=== PATIENT | female | born 1945 | race Caucasian/White ===

== ENCOUNTER → 2017-08-09 | Outpatient (CLI) | payer OTHER, MEDICARE | LOC: FIMAGING 10:56 | PROVIDERS: ATTEND Orthopaedic Surgery | DX: Z01.818 Encounter for other preprocedural examination (principal); M17.12 Unilateral primary osteoarthritis, left knee; M25.462 Effusion, left knee; M23.42 Loose body in knee, left knee ==

== ENCOUNTER 2017-08-25 06:54 | Inpatient (IN) | payer OTHER, MEDICARE ==
[~2017-08-25 06:54] MED LIST: ROPIVACAINE 0.2% 80 MG, EPINEPHrine 0.2 MG, KETOROLAC TROMETHAMINE 30 MG in BAG 0 ML IU ONE; TRANEXAMIC ACID 3,000 MG in NS 50 ML IRR ONE
--- NOTE | 2017-08-25 07:09 | PDHPUP ---
History & Physical Update H&P update statement: This history and physical update is based on an assessment of the patient which was completed after admission or registration (within 24 hours), but prior to the surgery/procedure. H&P update: H&P reviewed & patient examined, no change in patient's condition since H&P completed
[2017-08-25] MEDS ORDERED: DEXAMETHASONE 4 MG/ML VIAL IVP ONE (07:22)
[2017-08-25] MEDS ORDERED: ceFAZolin 2 GM/SWFI 2 GM/20 ML SYR IVP ONE (07:22)
[2017-08-25] MEDS ORDERED: ACETAMINOPHEN 325 MG TAB PO ONE (07:22)
[2017-08-25] MEDS ORDERED: FAMOTIDINE 20 MG TAB PO ONE (07:22)
[2017-08-25] MEDS ORDERED: LR 1,000 ML IV ONE (07:24)
[2017-08-25] MEDS ORDERED: LIDOCAINE 1% 2 ML INJ ID PRN (07:24)
[2017-08-25] MEDS ORDERED: DEXAMETHASONE 4 MG/ML VIAL ONE (07:26)
[2017-08-25] MEDS ORDERED: FAMOTIDINE 20 MG TAB ONE (07:27)
[2017-08-25] MEDS ORDERED: ceFAZolin 2 GM/SWFI 20 ML SYR IVP ONE (07:27)
[2017-08-25] MEDS ORDERED: ACETAMINOPHEN 325 MG TAB ONE (07:27)
[2017-08-25] MEDS ORDERED: TRANEXAMIC ACID 3,000 MG/50 ML BAG IRR ONE (07:28)
[2017-08-25] MEDS ORDERED: VANCOMYCIN 1 GM VIAL ONE (07:29)
[2017-08-25] MEDS ORDERED: MIDAZOLAM 2 MG/2 ML VIAL IVP ONE (08:04)
--- NOTE | 2017-08-25 08:07 | PDANEPAE ---
ANE History of Present Illness DJD L knee s/f for L TKA ANE Past Medical History - Cardiovascular History Hx Hypertension: Yes Hx Arrhythmias: No Hx Chest Pain: No Hx Coronary Artery / Peripheral Vascular Disease: No Hx CHF / Valvular Disease: No Hx Palpitations: No Cardiovascular History Comment: pcp monitors bp - Pulmonary History Hx COPD: No Hx Asthma/Reactive Airway Disease: No Hx Recent Upper Respiratory Infection: No Hx Oxygen in Use at Home: No Hx Sleep Apnea: No Sleep Apnea Screening Result - Last Documented: Negative - Neurologic History Hx Cerebrovascular Accident: Yes Hx Seizures: No Hx Dementia: No Neurologic History Comment: small TIA in 2000 or 2001- no residual - Endocrine History Hx Diabetes: No - Renal History Hx Renal Disorders: No - Liver History Hx Hepatic Disorders: No - Neurological & Psychiatric Hx Hx Neurological and Psychiatric Disorders: No - Cancer History Hx Cancer: No - Congenital Disorder History Hx Congenital Disorders: No - GI History Hx Gastrointestinal Disorders: No - Other Health History Other Health History: none - Chronic Pain History Chronic Pain: Yes (left knee pain) - Surgical History Prior Surgeries: Blephroplasty 08/2016. pylonidal cyst removal. hysterectomy 1978. right cataract ANE Review of Systems Review of Systems: - Exercise capacity METS (RN): 4 METS ANE Patient History - Allergies Allergies/Adverse Reactions: codeine Allergy (Mild, Verified 07/26/17 10:28) NAUSEA - Home Medications Home medications: home medication list seen and reviewed Home Medications: Acetaminophen [Tylenol 325mg (*)] 325 mg PO Q6 PRN 07/19/17 [Last Taken 08/23/17 ] Ibuprofen [Motrin (*)] 200 - 600 mg PO DAILY PRN 07/19/17 [Last Taken 08/16/17] Lisinopril [Zestril 10 mg (*)] 10 mg PO DAILY AT 6PM 07/19/17 [Last Taken 18:00] Pravastatin Sodium 20 mg PO DAILY AT 6PM 07/19/17 [Last Taken 08/24/17 18:00] - NPO status NPO Status: no food or drink >8 hours (except clears) NPO Since - Liquids (Date): 08/25/17 NPO Since - Liquids (Time): 03:00 NPO Since - Solids (Date): 08/24/17 NPO Since - Solids (Time): 17:00 - Anes Hx Anes Hx: no prior problems - Smoking Hx Smoking Status: Former smoker - Alcohol Use Alcohol Use: Rarely - Family Anes Hx Family Hx Anesthesia Complications: mother unable to tolerate well- always has n /v ANE Labs/Vital Signs - Labs - CBC WBC: reviewed - Vital Signs Blood Pressure: 155/88 Heart Rate: 59 Respiratory Rate: 20 O2 Sat (%): 96 Height: 156.21 cm Weight: 60.781 kg ANE Physical Exam - Airway Neck exam: FROM Mallampati Score: Class 1 Mouth exam: normal dental/mouth exam - Pulmonary Pulmonary: no respiratory distress - Cardiovascular Cardiovascular: regular rate and rhythym - ASA Status ASA Status: II ANE Anesthesia Plan Anesthesia Plan: general endotracheal anesthesia (R/B/A explained and patient agrees to proceed), spinal Regional Anesthesia: single shot NB (adductor canal block)
[2017-08-25] MEDS ORDERED: ONDANSETRON 4 MG/2 ML VIAL ONE (09:13)
[2017-08-25] MEDS ORDERED: fentaNYL 100 MCG/2 ML INJ ONE (09:13)
[2017-08-25] MEDS ORDERED: PROPOFOL/EMULSION 500 MG/50 ML BOTTLE IV ONE (09:13)
[2017-08-25] MEDS ORDERED: PHENYLEPHRINE HCL 100 MCG/ML SYR ONE (09:35)
[2017-08-25] MEDS ORDERED: ONDANSETRON DISINTEGRATING 4 MG TAB PO PRN (10:35)
[2017-08-25] MEDS ORDERED: POLYETHYLENE GLYCOL 3350 17 GM PKT PO PRN (10:35)
[2017-08-25] MEDS ORDERED: LACTULOSE 20 GM/30 ML UDCUP PO PRN (10:35)
[2017-08-25] MEDS ORDERED: TEMAZEPAM 15 MG CAP PO PRN (10:35)
[2017-08-25] MEDS ORDERED: DIPHENOXYLATE/ATROPINE LOMOTIL 1 TAB PO PRN (10:35)
[2017-08-25] MEDS ORDERED: MAGNESIUM HYDROXIDE 30 ML UDCUP PO PRN (10:35)
[2017-08-25] MEDS ORDERED: PROMETHAZINE HCL 25 MG/ML INJ IVP PRN ×2 (10:35→10:52)
[2017-08-25] MEDS ORDERED: PROMETHAZINE HCL 25 MG SUPPR PR PRN (10:35)
[2017-08-25] MEDS ORDERED: diphenhydrAMINE 25 MG CAP PO PRN (10:35)
[2017-08-25] MEDS ORDERED: ONDANSETRON 4 MG/2 ML VIAL IVP PRN ×2 (10:35→10:52)
[2017-08-25] MEDS ORDERED: BISACODYL 10 MG SUPP PR PRN (10:35)
[2017-08-25] MEDS ORDERED: CYCLOBENZAPRINE 10 MG TAB PO PRN (10:35)
[2017-08-25] MEDS ORDERED: METOCLOPRAMIDE 10 MG/2 ML VIAL IVP PRN ×2 (10:35→10:52)
--- NOTE | 2017-08-25 10:35 | POSTOPPROG ---
Post Op Note Date of Operation: 08/25/17 Surgeon: Ailin Kimball Prepress Supervisor: mack kimball Anesthesiologist: dr. crane Anesthesia: Spinal, Other (Specify) (adductor canal block) Pre-op Diagnosis: left knee OA Post-op Diagnosis: same Indication: left knee pain due to OA that failed conservative measures Procedure: L TKA robot assisted Findings: severe knee OA Inf/Abcess present in the surg proc area at time of surgery?: No EBL: 50-100
[2017-08-25] MEDS ORDERED: fentaNYL 100 MCG/2 ML INJ IVP PRN (10:52)
[2017-08-25] MEDS ORDERED: DEXAMETHASONE 4 MG/ML VIAL IVP PRN (10:52)
[2017-08-25] MEDS ORDERED: LABETALOL HCL 50 MG/10 ML SYR IVP PRN (10:52)
[2017-08-25] MEDS ORDERED: ACETAMINOPHEN 500 MG TAB PO PRN (10:52)
[2017-08-25] MEDS ORDERED: HYDROCODONE/APAP 5/325 TAB PO PRN (10:52)
[2017-08-25] MEDS ORDERED: NALOXONE HCL 0.4 MG/ML INJ IVP PRN (10:52)
[2017-08-25] MEDS ORDERED: LR 500 ML IV PRN (10:52)
[2017-08-25] MEDS ORDERED: MEPERIDINE 25 MG/ML SYR IVP PRN (10:52)
[2017-08-25] MEDS ORDERED: OXYCODONE/APAP 5/325 TAB PO PRN (10:52)
[2017-08-25] MEDS ORDERED: ALBUTEROL 3 ML DEYVIAL IH PRN (10:52)
--- NOTE | 2017-08-25 10:54 | POSTANESTH ---
Post Anesthetic Evaluation Cardiovascular Status: Normal, Stable Respiratory Status: Normal, Stable Level of Consciousness/Mental Status: Can Participate in Eval Pain Control: Adequate, Prn Tx Ordered Nausea/Vomiting Control: Adequate, Prn Tx Ordered Complications Possibly Related to Anesthesia: None Noted
[2017-08-25] MEDS ORDERED: LR 1,000 ML IV SCH (11:00)
[2017-08-25] MEDS: ACETAMINOPHEN 325 MG TAB PO SCH ×2 (12:57→18:02)
[2017-08-25] MEDS: oxyCODONE IR 5 MG TAB PO PRN (14:09)
[2017-08-25] MEDS: ceFAZolin 2 GM/DEXTROSE 100 ML IV SCH ×2 (14:57→22:04)
[2017-08-25] MEDS ORDERED: LISINOPRIL 10 MG TAB PO SCH (18:00)
[2017-08-25] MEDS ORDERED: PRAVASTATIN SODIUM 20 MG TAB PO SCH (18:00)
[2017-08-25] MEDS: ASPIRIN 325 MG TAB PO SCH (20:11)
[2017-08-25] MEDS: SENNOSIDES/DOCUSATE SODIUM TAB PO SCH (20:11)
[2017-08-25] MEDS: FAMOTIDINE 20 MG TAB PO SCH (20:12)
[2017-08-26] MEDS: ACETAMINOPHEN 325 MG TAB PO SCH ×2 (00:14→05:49)
--- NOTE | 2017-08-26 06:12 | GOP ---
[f rep st] OPERATIVE REPORT DATE OF OPERATION: 08/25/2017 SURGEON: Prince Parsons MD CHEMICAL RESEARCH WORKER: VIVIANE Orellana PREOPERATIVE DIAGNOSIS: Left knee osteoarthritis. POSTOPERATIVE DIAGNOSIS: Left knee osteoarthritis. PROCEDURE PERFORMED: Left total knee arthroplasty with computer navigation, robotic assist. FINDINGS: ESTIMATED BLOOD LOSS: 30 cc. INDICATIONS: This is a 71-year-old female with severe and progressive pain and deformity of the left knee unresponsive to conservative care. The risks and benefits of surgical intervention were explai dolly in detail. DESCRIPTION OF PROCEDURE: The patient was brought to the operating room and placed on the table in a supine position. General anesthesia was induced without difficulty. A pneumatic tourniquet was aspen lied about the left proximal thigh and the leg was prepped and draped in sterile fashion. Attention was first turned to the left proximal femur. Approximately 3 fingerbreadths proximal to the lateral rise of the femur, 2 percutaneous stab wounds were made and 3.5 mm threaded half pins were placed for fixation of the femoral tracker. In similar fashion, percutaneous stab wounds were made anterolatera l 3 cm distal to the tibial tuberosity and half pins were placed for fixation of the tibial tracker. Hip center navigation was then performed without difficulty. After exsanguination by elevation, the tourniquet was inflated to 250 mmHg. An incision was made anteromedial from the tibial tuberosity to a point 2 cm. proximal to the superio r pole of the patella. Dissection was carried down through the subcutaneous tissue to the deep fasci a using Bovie electrocautery for hemostasis. A medial parapatellar arthrotomy was carried out the ti bial tuberosity to a point 2 cm. proximal to the superior pole of the patella and turned posteriorly in line with the type VMO fibers. The medial collateral ligament was elevated and the inf rapatellar fat pad was resected. The patella was everted with the leg in extension and the patellar a rticular surface was excised. A 32 mm patellar button was placed. The knee was then flexed and the intercondylar notch was cleared of debris. Computer registration of the femoral and tibial landmarks was then carried out without difficulty. Attention was then turned to preparation of the tibia. The tibial extramedullary guide was assembled and rough alignment was carried out. Computer navigation was then used to fine tune the tibial alig nment to 0 degrees varus/valgus and 7 degrees posterior slope. A mm tibial cut was made _ degrees in the condyle and the tibial fragment was excised without difficulty. Attention was then turned to the femur. The distal femoral cut was navigated to 0 degrees varus/valg us and 2 degrees flexion with a mm resection based on the femoral condyle. The distal femoral cut was then made without difficulty. A femoral sizer rotation guide was placed and a size femoral cutting block was positioned. Anterior, posterior and chamfer cuts were ma de followed by the intercondylar box cut. The knee was extended and remnants of the medial and lateral meniscus were excised. The posterior ca psule was injected with ropivacaine, epinephrine, Toradol and morphine. A size tibial tra y was positioned. A size 32 mm tibial component was placed. Trial reduction was then carried out. The tibial rotation was set based on the ankle centering sarkis and computer navigation showed excellen t range of motion, alignment, and stability using the 3 x 9 mm polyethylene. All trials were then removed. The joint was thoroughly irrigated and carefully dried. Two packages of cement and 2 grams of vancomycin were mixed in the vacuum mixer and placed on the fixation surface s of all components. The components were implanted and all excess cement was thoroughly cleared. Th e permanent mm polyethylene was positioned followed by the 32 mm patellar button. The joint was thoroughly irrigated and the tourniquet was deflated. All bleeders were coagulated. A fter final alignment check with computer navigation, the femoral and tibial trackers were removed. T he wound was closed over a medium Dori reinfusion drain using interrupted sutures of 2-0 Vicryl for the joint capsule. The subcu was closed with 3-0 Vicryl and the skin with 4-0 Monocryl. Dermabond a nd Steri-Strips were applied followed by a compressive dressing. The patient was then moved from the operating room to the recovery room in good condition, having tolerated the procedure well. PATHOLOGY: Severe lateral patellofemoral osteoarthritis. CASE CLASSIFICATION: Clean. /[id number]/MODL
[2017-08-26] MEDS: oxyCODONE IR 5 MG TAB PO PRN (07:04)
[2017-08-26 07:39] VITALS: BP 149/71; PULSE 65; RESP 14; TEMP 97.7; O2SAT 97
--- NOTE | 2017-08-26 08:59 | SOAPPROG ---
SOAP Progress Note Assessment/Plan: Assessment: Patient is doing well POD 1 s/p L TKA Pain management: pain is well controlled on oral pain meds. VTE ppx: recommend aspirin daily for 3 weeks, cont STAN and SCDs Anemia: level is expected initially postop. Asymptomatic. Continue to monitor D/c planning: d/c to home today pending release from PT Plan: 08/26/17 08:58 Subjective: Celeste is doing well today, denies SOB, chest pain and N/v. Objective: Vital Signs Temp Pulse Resp BP Pulse Ox 36.5 C 65 14 149/71 H 97 08/26/17 07:36 08/26/17 07:36 08/26/17 07:36 08/26/17 07:36 08/26/17 07:36 Laboratory Results 08/26/17 04:15 08/25/17 08/26/17 08/27/17 05:59 05:59 05:59 Intake Total 2365 400 Output Total 2450 Balance -85 400 RLE: incision dressing is clean and dry, NVI, +pf/df ICD10 Worksheet Patient Problems: Problems Problem Status Onset Primary localized osteoarthritis of left knee Acute
[2017-08-26] MEDS: ASPIRIN 325 MG TAB PO SCH (10:11)
[2017-08-26] MEDS: FAMOTIDINE 20 MG TAB PO SCH (10:11)
[2017-08-26] MEDS: SENNOSIDES/DOCUSATE SODIUM TAB PO SCH (10:11)
--- NOTE | 2017-08-26 11:18 | ASDISCHSUM ---
Discharge Information Plan Status:Home with No Needs Medically Cleared to Leave: Discharge Date:08/26/2017 10:30 AM CM D/C Disposition:Home, Routine, Self-Care ADT D/C Disposition:Home, Routine, Self-Care Projected Discharge Date:08/26/2017 10:30 AM Transportation at D/C: Discharge Delay Reason: Follow-Up Date:08/26/2017 10:30 AM Discharge Slot: Final Diagnosis: Placement Information Patient Contact Information Contact Name:IQRA Relationship: Address:[address] [place] City:[facility] Phone: [facility]/Zip Code:[place] [address] Email: Financial Information Financial Class:MC Primary Plan Desc:MEDICARE INPATIENT Primary Plan Number:[id number] Secondary Plan Desc:[employer]/MDR SUPPLEMENT Secondary Plan Number:[id number] Assessment Information Intervention Information
--- NOTE | 2017-08-26 11:18 | ASDISCHSUM ---
Discharge Information Plan Status:Home with No Needs Medically Cleared to Leave: Discharge Date:08/26/2017 10:30 AM CM D/C Disposition:Home, Routine, Self-Care ADT D/C Disposition:Home, Routine, Self-Care Projected Discharge Date:08/26/2017 10:30 AM Transportation at D/C: Discharge Delay Reason: Follow-Up Date:08/26/2017 10:30 AM Discharge Slot: Final Diagnosis: Placement Information Patient Contact Information Contact Name:IQRA Relationship: Address:[address] [place] City:[facility] Phone: [facility]/Zip Code:[place] [address] Email: Financial Information Financial Class:MC Primary Plan Desc:MEDICARE INPATIENT Primary Plan Number:[id number] Secondary Plan Desc:[employer]/MDR SUPPLEMENT Secondary Plan Number:[id number] Assessment Information Intervention Information
--- NOTE | 2017-08-26 11:18 | ASDISCHSUM ---
Discharge Information Plan Status:Home with No Needs Medically Cleared to Leave: Discharge Date:08/26/2017 10:30 AM CM D/C Disposition:Home, Routine, Self-Care ADT D/C Disposition:Home, Routine, Self-Care Projected Discharge Date:08/26/2017 10:30 AM Transportation at D/C: Discharge Delay Reason: Follow-Up Date:08/26/2017 10:30 AM Discharge Slot: Final Diagnosis: Placement Information Patient Contact Information Contact Name:IQRA Relationship: Address:[address] [place] City:[facility] Phone: [facility]/Zip Code:[place] [address] Email: Financial Information Financial Class:MC Primary Plan Desc:MEDICARE INPATIENT Primary Plan Number:[id number] Secondary Plan Desc:[employer]/MDR SUPPLEMENT Secondary Plan Number:[id number] Assessment Information Intervention Information
== END 2017-08-26 10:30 | disposition home or self-care (01) | DRG 470 ==
LOC: F3N 06:54
PROVIDERS: ADMIT Orthopaedic Surgery; ATTEND Orthopaedic Surgery
PROC: 0SRD0J9 Replacement of Left Knee Joint with Synthetic Substitute, Cemented, Open Approach (ICD-10-PCS; principal; 2017-08-25 09:15)
DX: M17.12 Unilateral primary osteoarthritis, left knee (principal); I10 Essential (primary) hypertension; Z86.73 Personal history of transient ischemic attack (TIA), and cerebral infarction without residual deficits; Z87.891 Personal history of nicotine dependence
CPT/HCPCS: 97110-GP; 97116-GP; 97161-GP; 97165-GO; C1713; G8978-GP-CI; G8978-GP-CJ; G8979-GP-CI; G8980-GP-CI; G8987-GO-CI; G8988-GO-CI; G8989-GO-CI; J0171; J0690; J1100; J1885; J2250; J2370; J2405; J2704; J2795; J3010; J3370